=== PATIENT | male | born 1985 | race Caucasian/White ===

== ENCOUNTER → 2020-05-09 | Outpatient (CLI) | payer OTHER ==
[~2020-05-09] MED LIST: AUGMENTIN 875-1 EACH PO; BENTYL 20MG TAB20 MG PO; CEFUROXIME500 MG PO; FLAGYL500 MG PO; LODINE CAP 300300 MG PO; ZOFRAN ODT 4 MG4 MG PO
== END ==
LOC: KOH-I 15:43
DX: M25.531 Pain in right wrist (principal); M79.641 Pain in right hand
CPT/HCPCS: 73110; 73130

== ENCOUNTER 2020-07-15 18:48 | Emergency (ER) | payer OTHER ==
[2020-07-15 20:00] LABS: HEMOGLOBIN 13.1 gm/dl (14.0-17.5); RED BLOOD COUNT 5.23 M/UL (4.20-5.50); WHITE BLOOD COUNT 13.7 K/UL (4.5-11.0)
[2020-07-15 20:23] LABS: BUN/CREATININE RATIO 16 (0-10)
[2020-07-15] MEDS ORDERED: FLAGYL500 MG PO (23:48)
[2020-07-15] MEDS ORDERED: LODINE CAP 300300 MG PO (23:48)
[2020-07-15] MEDS ORDERED: BENTYL 20MG TAB20 MG PO (23:48)
[2020-07-15] MEDS ORDERED: CEFUROXIME500 MG PO (23:48)
[2020-07-15] MEDS ORDERED: ZOFRAN ODT 4 MG4 MG PO (23:49)
== END 2020-07-16 00:09 | disposition home or self-care (01) ==
LOC: ER1 18:48
PROVIDERS: Nurse Practitioner
DX: K52.9 Noninfective gastroenteritis and colitis, unspecified (principal); E87.6 Hypokalemia; Z90.89 Acquired absence of other organs
CPT/HCPCS: 80053; 81001; 83605; 83690; 85025; 96365; 96372; 96375; 99284; J0500; J2405; Q9967

== ENCOUNTER 2020-07-26 19:43 | Emergency (ER) | payer OTHER ==
[~2020-07-26 19:43] MED LIST changes: -AUGMENTIN 875-1 EACH PO
[2020-07-26] MEDS ORDERED: AUGMENTIN 875-1 EACH PO (20:19)
== END 2020-07-26 20:36 | disposition home or self-care (01) ==
LOC: ER1 19:43
DX: S51.851A Open bite of right forearm, initial encounter (principal); S01.01XA Laceration without foreign body of scalp, initial encounter; Z23 Encounter for immunization; W54.0XXA Bitten by dog, initial encounter
CPT/HCPCS: 12002; 90471; 90715; 99283

== ENCOUNTER 2020-08-02 16:07 | Emergency (ER) | payer OTHER ==
[~2020-08-02 16:07] MED LIST changes: +AUGMENTIN 875-1 EACH PO
== END 2020-08-02 16:28 | disposition home or self-care (01) ==
LOC: ER1 16:07
DX: S01.01XD Laceration without foreign body of scalp, subsequent encounter (principal)
CPT/HCPCS: 99281